=== PATIENT | female | born 2000 | race African-American/Black ===

== ENCOUNTER 2025-02-26 09:25 | Emergency (ER) | payer MEDICAID ==
[~2025-02-26] VITALS: Ht 167.6 cm; Wt 52.3 kg
[2025-02-26 09:48] VITALS: O2SAT 100
[2025-02-26 11:06] LABS: CLARITY URINE CLEAR (CLEAR); COLOR URINE YELLOW (YELLOW); GLUCOSE URINE NEGATIVE (NEGATIVE); KETONES URINE NEGATIVE (NEGATIVE); LEUKOCYTE ESTERASE URINE NEGATIVE (NEGATIVE); NITRITE URINE NEGATIVE (NEGATIVE); OCCULT BLOOD URINE NEGATIVE (NEGATIVE); PH URINE 7.5 (4.5-8.0); PROTEIN URINE NEGATIVE (NEGATIVE); SPECIFIC GRAVITY URINE 1.009 (1.005-1.030); UROBILINOGEN URINE 0.2 E.U./dL (0.2-1.0)
[2025-02-26 11:17] LABS: BASOPHILS % 0.4 % (0.0-2.0); EOSINOPHILS % 0.7 % (0.0-5.0); HEMATOCRIT. 37.9 % (36.0-48.0); HEMOGLOBIN. 12.5 g/dL (12.0-16.0); LYMPHOCYTES % 21.5 % (20.0-50.0); MEAN CORPUSCULAR HEMOGLOBIN 29.3 pg (28.0-32.0); MEAN CORPUSCULAR HGB CONC 33.1 g/dL (31.0-37.0); MEAN CORPUSCULAR VOLUME 88.8 fL (81.0-99.0); MEAN PLATELET VOLUME 7.8 fl (7.4-10.4); NEUTROPHILS % 70.4 % (40.0-76.0); PLATELET 238 x1000/uL (130-400); RED BLOOD CELL COUNT 4.27 mill/uL (4.2-5.4); RED CELL DISTRIBUTION WIDTH 13.4 % (11.6-14.6); WHITE BLOOD COUNT 7.3 x1000/uL (4.5-11.0)
[2025-02-26 11:23] LABS: CHLORIDE 104 mEq/L (98-107); POTASSIUM 4.3 mEq/L (3.5-5.1); SODIUM 136 mEq/L (136-145)
[2025-02-26 11:24] LABS: CARBON DIOXIDE 26 mEq/L (21-32)
[2025-02-26 11:25] LABS: CALCIUM 9.7 mg/dL (8.7-10.4)
[2025-02-26 11:28] LABS: HCG SCREEN NEGATIVE
[2025-02-26 11:29] LABS: CREATININE 0.8 mg/dL (0.6-1.0); GLUCOSE 92 mg/dL (70-105); UREA NITROGEN BLOOD 8 mg/dL (9-23)
[2025-02-26] MEDS ORDERED: DOXY100C5 MT (11:59)
[2025-02-26] MEDS: CEFTRIAXONE SODIUM 500MG VIAL IM ONE (12:18)
[2025-02-26] MEDS: LIDOCAINE HCL 1% 20ML VIAL INFIL ONE (12:18)
[2025-02-26 12:26] VITALS: BP 121/82; PULSE 78; RESP 20; TEMP 36.8; O2SAT 100
== END 2025-02-26 12:34 | disposition home or self-care (01) ==
LOC: ER 09:25
DX: Z11.3 Encounter for screening for infections with a predominantly sexual mode of transmission (principal); Z79.899 Other long term (current) drug therapy
CPT/HCPCS: 99283; 86592; 87491; 87591; 80048; 81003; 84703; 85025; 36415; 96372; J0696